=== PATIENT | female | born 1990 | race Two or more races ===

== ENCOUNTER 2022-12-17 01:54 | Emergency (ER) | payer MEDICAID, OTHER ==
[~2022-12-17] VITALS: Ht 149.9 cm; Wt 75.0 kg
[2022-12-17] MEDS ORDERED: DEXTROSE (50%) 50ML SYRG IV ONE ×2 (02:30→02:45)
[2022-12-17] MEDS ORDERED: ACCU-CHEK COMFORT CURVE STRIP VI ONE ×2 (02:30→02:45)
[2022-12-17 03:01] LABS: Basophils # (auto) 0.1 10 ^3/uL (0-0.2); Basophils % (auto) 0.6 % (0.0-2.0); Eosinophils # (auto) 0.2 10 ^3/uL (0-0.8); Eosinophils % (auto) 1.6 % (0.0-7.0); Hematocrit 40.4 % (36.0-46.0); Hemoglobin 13.8 g/dL (12.2-16.2); Lymphocytes # (auto) 3.1 10 ^3/uL (0.4-5.4); Lymphocytes % (auto) 28.7 % (10.0-50.0); Mean Corpuscular Hemoglobin 28.7 pg (28.0-32.0); Mean Corpuscular Hgb Conc. 34.1 g/dL (32.0-36.0); Monocytes # (auto) 0.8 10 ^3/uL (0-1.3); Monocytes % (auto) 7.7 % (0.0-12.0); Neutrophils # (auto) 6.7 10 ^3/uL (1.6-8.6); Neutrophils % (auto) 61.4 % (37.0-80.0); Red Blood Cells 4.81 10^6/uL (4.0-5.20); Red Cell Distribution Width 13.2 % (11.8-14.3); White Blood Cell 10.9 10^3/uL (4.4-10.8)
[2022-12-17 03:18] LABS: Alanine Aminotransferase 71 U/L (7-40); Alkaline Phosphatase 130 U/L (46-116); Anion Gap 6.8 (5-15); Aspartate Aminotransferase 50 U/L (13-40); BUN/Creatinine Ratio 15.4 (10.0-20.0); Blood Urea Nitrogen 10 mg/dL (9-23); Calcium 9.1 mg/dL (8.7-10.4); Carbon Dioxide 23.2 mmol/L (20-30); Chloride 108 mmol/L (98-107); Glucose 138 mg/dL (74-106); Potassium 4.1 mmol/L (3.5-5.1); Sodium 138 mmol/L (136-145)
[2022-12-17 03:19] LABS: Bilirubin, Total 0.2 mg/dL (0.2-1.0); Total Protein 6.6 g/dL (5.7-8.2)
[2022-12-17 05:12] VITALS: PULSE 96; RESP 18; O2SAT 96
[2022-12-17 05:39] LABS: Urine Bacteria FEW /hpf (None Seen); Urine Blood Negative /uL (Negative); Urine Clarity Clear (Clear); Urine Protein, UAD 2+ (Negative); Urine Specific Gravity 1.008 (1.001-1.035); Urine Urobilinogen Normal (Negative); Urine WBC <1 /hpf (0 - 5)
[2022-12-17 05:55] LABS: Urine Color Straw (Yellow)
[2022-12-17 07:00] VITALS: BP 140/72; PULSE 93; RESP 20; TEMP 98.2; O2SAT 96
== END 2022-12-17 07:08 | disposition home or self-care (01) ==
LOC: ER 01:54 → EDBD 01:54 → ER 07:08
DX: E11.649 Type 2 diabetes mellitus with hypoglycemia without coma (principal); R10.2 Pelvic and perineal pain; R10.9 Unspecified abdominal pain; R74.01 Elevation of levels of liver transaminase levels; Z90.49 Acquired absence of other specified parts of digestive tract
CPT/HCPCS: 36415; 80053; 81001; 82962; 84484; 84702; 85025